=== PATIENT | male | born 1995 | race Caucasian/White ===

== ENCOUNTER 2017-03-23 09:15 | Emergency (ER) | payer OTHER ==
[2017-03-23 09:26] VITALS: BP 135/95
--- NOTE | 2017-03-23 09:33 | EDM.PDOC ---
ED HPI ENT - General Chief Complaint: ENT Problem Stated Complaint: EAR ACHE Time Seen by Provider: 03/23/17 09:32 Source of Information: Reports: Patient, RN, RN notes reviewed History Limitations: Reports: No limitations - History of Present Illness INITIAL COMMENTS - FREE TEXT/NARRATIVE: Patient presents to the ED at [facility] complaining of a left ear ache that started around midnight last night. Patient Denies any other URI symptoms. Symptom Onset Date: 03/23/17 Symptom Onset Time: 00:00 Timing/Duration: Reports: Getting worse Severity: moderate Location: Reports: left Ear Quality: Reports: Throbbing Improves with: Reports: None Worsens with: Reports: Movement Associated Symptoms: Reports: no other symptoms - Related Data Allergies/ADRs: Allergies Allergy/AdvReac Type Severity Reaction Status Date / Time morphine Allergy Rash Verified 03/23/17 09:28 Home Meds: Home Meds . [No Known Home Meds] 03/23/17 [History] Past Medical History - Past Health History Medical/Surgical History: Denies Medical/Surgical History Social & Family History - Tobacco Use Smoking Status *Q: Current Every Day Smoker Years of Tobacco use: 1 Packs/Tins Daily: 0.2 ED ROS ENT - Review of Systems Review Of Systems: See Below Constitutional: Denies: fever, chills, weakness HEENT: Reports: Ear discharge, Ear pain. Denies: Eye pain, Rhinitis, Sinus problem, Throat pain Respiratory: Denies: Shortness of Breath, Cough Cardiovascular: Denies: Chest pain, Palpitations Skin: Reports: no symptoms Neurological: Reports: No Symptoms. Denies: Dizziness, Headache, Numbness, Paresthesia, Tingling ED EXAM, ENT - Physical Exam Exam: See Below Exam Limited By: No limitations General Appearance: alert, no apparent distress Eye Exam: bilateral eye: EOMI, normal inspection, PERRL Ears: normal TMs (bilateral), auricular tenderness, canal discharge (Left), canal swelling (Left) Nose: normal inspection, normal mucousa Mouth/Throat: Normal inspection, Normal oropharynx Neck: supple Respiratory/Chest: no respiratory distress, lungs clear, normal breath sounds Cardiovascular: regular rate, rhythm Neurological: alert, oriented Skin: Warm, Dry, Intact, Normal color, No rash Course - Vital Signs Last Recorded V/S: Last Vital Signs Temp 37.1 C 03/23/17 09:25 Pulse 90 03/23/17 09:25 Resp 14 03/23/17 09:25 BP 135/95 H 03/23/17 09:25 Pulse Ox 97 03/23/17 09:25 - Orders/Labs/Meds Orders: Active Orders 24 hr Category Date Time Status Hydrocort/Neomycin/Polymyxin B [Take Home: Hydrocort/ Med 03/23/17 09:36 Once Neomycin/Polymy B, 1 Btl] 1 packet EARLF ONETIME ONE Departure - Departure Time of Disposition: 09:39 Disposition: Home, Self-Care 01 Condition: good Clinical Impression: Otalgia of left ear Otitis externa Qualifiers: Otitis externa type: swimmer's ear Laterality: left Chronicity: acute Qualified Code(s): H60.332 - Swimmer's ear, left ear Instructions: Otitis Externa Forms: ED Department Discharge Additional Instructions: 1. Stay well hydrated and rest 2. Use drops for the full coarse, even if you are feeling better 3. May alternate Tylenol/Advil as needed for pain 4. See your Primary as symptoms warrant - Problem List Review Problem List Initiated/Reviewed/Updated: Yes - My Orders Last 24 Hours: My Active Orders 03/23/17 09:36 Hydrocort/Neomycin/Polymyxin B [Take Home: Hydrocort/Neomycin/Polymy B, 1 Btl] 1 packet EARLF ONETIME ONE - Assessment/Plan Last 24 Hours: My Active Orders 03/23/17 09:36 Hydrocort/Neomycin/Polymyxin B [Take Home: Hydrocort/Neomycin/Polymy B, 1 Btl] 1 packet EARLF ONETIME ONE
[2017-03-23] MEDS ORDERED: Take Home: Hydrocortisone/Neomycin/Polymyxin B Otic Susp 10 ML, 1 Btle Pac EARLF ONE (09:36)
== END 2017-03-23 09:56 | disposition home or self-care (01) ==
LOC: VM.ED 09:15
DX: H60.332 Swimmer's ear, left ear (principal); F17.210 Nicotine dependence, cigarettes, uncomplicated; Z88.5 Allergy status to narcotic agent
CPT/HCPCS: 99282; A9270